=== PATIENT | female | born 1990 | race Caucasian/White ===

== ENCOUNTER 2017-04-20 16:45 | Emergency (ER) | payer SELFPAY ==
[2017-04-20] MEDS ORDERED: Ibuprofen TAB* 600 MG PO ONE (16:51)
[2017-04-20 17:03] VITALS: BP 131/68
--- NOTE | 2017-04-20 17:13 | UC ---
Shoulder Pain HPI - HPI Summary HPI Summary: left shoulder and arm pain after transferring a patient at work today - History of Current Complaint Chief Complaint: UCBackPain Stated Complaint: SHOULDER AND NECK INJURY Time Seen by Provider: 04/20/17 17:10 Hx Obtained From: Patient Hx Last Menstrual Period: hysterectomy ?: No Onset/Duration: Sudden Onset, Lasting Hours, Still Present Timing: Constant Severity Initially: Moderate Severity Currently: Moderate Location Of Pain: Is Discrete @ Pain Intensity: 7 Pain Scale Used: 0-10 Numeric Character: Aching, Spasmodic, Stiffness Aggravating Factor(s): Movement, Lifting Alleviating Factor(s): Nothing Associated Signs And Symptoms: Positive: Negative Related History: Dominant Hand Right - Allergies/Home Medications Allergies/Adverse Reactions: Allergies Allergy/AdvReac Type Severity Reaction Status Date / Time Latex Allergy Rash Verified 04/20/17 16:53 Home Medications: Home Medications ALPRAZolam TAB* [Xanax TAB*] 0.25 mg PO Q6H PRN 04/20/17 [History Confirmed ] buPROPion TAB* [Wellbutrin TAB*] 75 mg PO BID 04/20/17 [History Confirmed ] predniSONE TAB* [Deltasone TAB*] 10 mg PO DAILY 04/20/17 [History Confirmed ] PMH/Surg Hx/FS Hx/Imm Hx Previously Healthy: No Psychological History: Anxiety - Surgical History Surgical History: Yes Surgery Procedure, Year, and Place: hysterectomy. endometriosis. [facility] - Family History Known Family History: Positive: None - Social History Occupation: Employed Full-time Lives: With Family Alcohol Use: Rare Substance Use Type: None Smoking Status (MU): Never Smoked Tobacco Review of Systems Constitutional: Negative Skin: Negative Eyes: Negative ENT: Negative Respiratory: Negative Cardiovascular: Negative Gastrointestinal: Negative Genitourinary: Negative Motor: Negative Neurovascular: Negative Musculoskeletal: Negative, Myalgia - left shoulder and left side of neck Neurological: Negative Psychological: Negative All Other Systems Reviewed And Are Negative: Yes Physical Exam Triage Information Reviewed: Yes Appearance: Well-Appearing, No Pain Distress, Well-Nourished Vital Signs: Initial Vital Signs Temp 98.7 F 04/20/17 17:02 Pulse 87 04/20/17 17:02 Resp 16 04/20/17 17:02 BP 131/68 04/20/17 17:02 Pulse Ox 99 04/20/17 17:02 Vital Signs Reviewed: Yes Eye Exam: Normal Eyes: Positive: Conjunctiva Clear ENT Exam: Normal ENT: Positive: Normal ENT inspection, Hearing grossly normal. Negative: Nasal congestion, Nasal drainage, Trismus, Muffled/hoarse voice Dental Exam: Normal Neck exam: Normal Neck: Positive: Supple, No Lymphadenopathy, Tenderness @ - muscles in left side of neck-shoulder Respiratory Exam: Normal Respiratory: Positive: Chest non-tender, Lungs clear, Normal breath sounds, No respiratory distress, No accessory muscle use Cardiovascular Exam: Normal Cardiovascular: Positive: RRR, No Murmur, Pulses Normal, Brisk Capillary Refill Musculoskeletal Exam: Normal Musculoskeletal: Positive: Strength Intact, ROM Intact, No Edema Neurological Exam: Normal Neurological: Positive: Alert, Muscle Tone Normal Psychological Exam: Normal Skin Exam: Normal Shoulder Course/Dx - Course Assessment/Plan: nsaids, muscle relaxors, physical therapy follow with pcp - Differential Dx/Diagnosis Differential Diagnosis/HQI/PQRI: Rotator Cuff Injury, Sprain, Strain Provider Diagnoses: Muscle strain left side of neck Discharge - Discharge Plan Condition: Stable Disposition: HOME Prescriptions: Ibuprofen TAB* [Motrin TAB* 600 MG] 600 mg PO Q6H PRN #40 tab PRN Reason: Pain Tizanidine HCl 2 - 4 mg PO TID #30 cap Patient Education Materials: Cervical Radiculopathy (ED), Muscle Spasm (ED) Forms: *Work Release Referrals: [facility] [Provider Group] - 1 Week [facility] [place] [facility]FERR[facility] [Outside] - 5 Days
== END 2017-04-20 17:35 | disposition home or self-care (01) ==
LOC: UCEAST 16:45
DX: S16.1XXA Strain of muscle, fascia and tendon at neck level, initial encounter (principal); X50.0XXA Overexertion from strenuous movement or load, initial encounter; Y93.9 Activity, unspecified; Y99.9 Unspecified external cause status
CPT/HCPCS: 99202; A9270-GY; G0463

== ENCOUNTER 2017-04-22 14:07 | Emergency (ER) | payer SELFPAY ==
[2017-04-22 14:17] VITALS: BP 121/72
--- NOTE | 2017-04-22 16:14 | UC ---
Back Pain HPI - HPI Summary HPI Summary: PT STRAINED LEFT NECK/SHOULDER 2 DAYS AGO WHILE TRANSERRING A PT AT WORK. SEEN HERE AND TX WITH TIZANIDINE AND IBUPROFEN. YESTERDAY ONSET OF RIGHT LOWER BACK PAIN. MEDS SHE RECEIVED ARE HELPING BUT SHE IS CONCERNED ABOUT RETURNING TO WORK DUE TO HER DISCOMFORT. WORSE WITH STAIRS AND PROLONGED SITTING. NO SADDLE ANESTHESIA OR BOWEL/BLADDER INCONTINENCE. - History of Current Complaint Chief Complaint: UCBackPain Stated Complaint: BACK PAIN Time Seen by Provider: 04/22/17 15:42 Hx Obtained From: Patient Hx Last Menstrual Period: hysterectomy Onset/Duration: Sudden Onset, Lasting Days, Still Present Timing: Constant Severity Initially: Moderate Severity Currently: Moderate Pain Intensity: 7 Pain Scale Used: 0-10 Numeric Back Pain: Is Discrete @ - RIGHT LOW BACK Character: Sharp, Aching Aggravating: Movement Alleviating: Rest, Position Associated Signs And Symptoms: Negative: Swelling, Redness, Weakness, Numbness, Tingling, Bladder Incontinence, Bowel Incontinence, Pain with Weight Bearing - Allergies/Home Medications Allergies/Adverse Reactions: Allergies Allergy/AdvReac Type Severity Reaction Status Date / Time Latex Allergy Rash Verified 04/22/17 14:17 PMH/Surg Hx/FS Hx/Imm Hx - Additional Past Medical History Additional PMH: LUPUS Psychological History: Anxiety - Surgical History Surgical History: Yes Surgery Procedure, Year, and Place: hysterectomy. endometriosis. [facility] - Family History Known Family History: Positive: None - Social History Alcohol Use: Occasionally Substance Use Type: None Smoking Status (MU): Never Smoked Tobacco Review of Systems Constitutional: Negative Skin: Negative Respiratory: Negative Cardiovascular: Negative Gastrointestinal: Negative Musculoskeletal: Myalgia All Other Systems Reviewed And Are Negative: Yes Physical Exam Triage Information Reviewed: Yes Appearance: Well-Appearing, No Pain Distress, Well-Nourished Vital Signs: Initial Vital Signs Temp 98.1 F 04/22/17 14:13 Pulse 74 04/22/17 14:13 Resp 18 04/22/17 14:13 BP 121/72 04/22/17 14:13 Pulse Ox 100 04/22/17 14:13 Vital Signs Reviewed: Yes Eyes: Positive: Conjunctiva Clear ENT: Positive: Hearing grossly normal Neck: Positive: Supple Respiratory: Positive: No respiratory distress, No accessory muscle use Cardiovascular: Positive: Pulses Normal Abdomen Description: Positive: Soft Musculoskeletal: Positive: ROM Intact, No Edema, Other: - NEG STRAIGHT LEG RAISE Psychological: Positive: Age Appropriate Behavior Skin: Negative: rashes Back Pain Course/Dx - Differential Dx/Diagnosis Provider Diagnoses: ACUTE LOW BACK STRAIN Discharge - Discharge Plan Condition: Stable Disposition: HOME Patient Education Materials: Low Back Strain (ED) Forms: *Work Release Additional Instructions: CONTINUE YOUR MEDS FROM LAST VISIT PRESCRIBED. KEEP YOUR PHYSICAL THERAPY APPT NEXT WEEK. NOTE FOR WORK PROVIDED. BE SURE TO GO THROUGH SLOW RANGE OF MOTION AND STRETCHING EXERCISES DAILY YOU ARE ABLE TO PREVENT STIFFENING UP AND MAKING THE DISCOMFORT WORSE. CALL THE NUMBER BELOW FOR ASSISTANCE IN ESTABLISHING WITH A PCP An additional resource available to assist in finding the appropriate physician for your health care needs is the [facility] ([facility]). You may contact them by calling [phone].
== END 2017-04-22 16:28 | disposition home or self-care (01) ==
LOC: UCEAST 14:07
DX: S39.012A Strain of muscle, fascia and tendon of lower back, initial encounter (principal); X50.0XXA Overexertion from strenuous movement or load, initial encounter; Y93.9 Activity, unspecified; Y99.9 Unspecified external cause status; M32.9 Systemic lupus erythematosus, unspecified; F41.9 Anxiety disorder, unspecified
CPT/HCPCS: 99211; G0463